=== PATIENT | female | born 1950 | race Caucasian/White ===

== ENCOUNTER 2018-02-10 09:26 | Observation (INO) | payer OTHER ==
[~2018-02-10] VITALS: Ht 165.1 cm; Wt 80.7 kg
[2018-02-10 10:25] VITALS: BP 120/72
[2018-02-10] MEDS ORDERED: ONDANSETRON PF 4 MG/2 ML VIAL. IV PRN (10:30)
[2018-02-10] MEDS ORDERED: IOHEXOL 240 MG/ML 50ML VIAL. ONE (10:32)
[2018-02-10 10:34] LABS: BASO % 1 % (0-3); EOS % 1 % (0-3); HEMATOCRIT 39.9 % (36.0-47.0); HEMOGLOBIN 13.4 g/dL (12.0-15.5); LYMPH % 18 % (24-48); MEAN CORPUSCULAR HEMOGLOBIN 31 pg (25-35); MEAN CORPUSCULAR HGB CONC 34 g/dL (31-37); MEAN CORPUSCULAR VOLUME 92 fL (79-100); MONO # 0.6 x10^3/uL (0.0-1.1); MONO % 11 % (0-9); NEUT % 71 % (31-73); PLATELET COUNT 212 x10^3/uL (140-400); RED BLOOD COUNT 4.32 x10^6/uL (3.50-5.40); RED CELL DISTRIBUTION WIDTH 13.7 % (11.5-14.5); WHITE BLOOD COUNT 5.6 x10^3/uL (4.0-11.0)
[2018-02-10 10:50] LABS: BACTERIA,URINE FEW /HPF (0-FEW); BILIRUBIN,URINE NEG (NEG); CLARITY,URINE HAZY; COLOR,URINE YELLOW; GLUCOSE,URINE NEG (NEG); NITRITE,URINE NEG (NEG); SQUAMOUS EPITHELIAL CELL,UR OCC /LPF; UROBILINOGEN,URINE 0.2 mg/dL (0.2 mg/dL); WBC,URINE 0 /HPF (0-4)
[2018-02-10] MEDS ORDERED: LEVO100T PO (10:59)
[2018-02-10] MEDS ORDERED: OMEG1CAP50 PO (10:59)
[2018-02-10] MEDS ORDERED: CHOL500016 PO (10:59)
[2018-02-10] MEDS ORDERED: PITA2TAB2 PO (10:59)
[2018-02-10] MEDS ORDERED: RANI150C PO (10:59)
[2018-02-10] MEDS ORDERED: CALC600T4 PO (10:59)
[2018-02-10] MEDS ORDERED: ASPI-630 PO (10:59)
[2018-02-10 11:48] LABS: ALBUMIN 3.4 g/dL (3.4-5.0); ALBUMIN/GLOBULIN RATIO 0.9 (1.0-1.7); CALCIUM 9.4 mg/dL (8.5-10.1); CREATININE 0.9 mg/dL (0.6-1.0); GFR 62.8; POTASSIUM 4.1 mmol/L (3.5-5.1); TOTAL BILIRUBIN 0.6 mg/dL (0.2-1.0); TOTAL PROTEIN 7.3 g/dL (6.4-8.2)
[2018-02-10] MEDS ORDERED: CALCIUM CARBONATE 500 MG TABLET PO SCH (12:00)
[2018-02-10] MEDS: IV NORMAL SALINE 1,000ML 1,000 ML IV SCH ×2 (12:11→20:14)
--- NOTE | 2018-02-10 12:35 | RAD ---
CT HEAD WITHOUT CONTRAST02/10/2018 12:13 PM Indication: Syncopal episode. Comparison: None Procedure: Multidetector CT imaging of the head was performed without the administration of contrast. Findings: There is no evidence of acute intracranial hemorrhage. There is no evidence of acute territorial infarction. Please note that CT is limited for evaluation of acute ischemia. No mass effect or midline shift is identified . The ventricles and basilar cisterns have an appropriate appearance. No abnormal extra-axial fluid collections are seen. Left frontal scalp hematoma noted. No acute osseous changes are identified. Impression: 1.No evidence of acute intracranial abnormality 2. Left frontal subcutaneous scalp hematoma PQRS Compliance Statement: One or more of the following individualized dose reduction techniques were utilized for this examination: 1. Automated exposure control 2. Adjustment of the mA and/or kV according to patient size 3. Use of iterative reconstruction technique
[2018-02-10] MEDS: OMEGA-3 FATTY ACIDS/FISH OIL 1,000 MG CAPSULE. PO SCH ×2 (13:00→17:00)
[2018-02-10 15:27] VITALS: BP 124/78
--- NOTE | 2018-02-10 15:59 | RAD ---
PQRS Compliance Statement: One or more of the following individualized dose reduction techniques were utilized for this examination: 1. Automated exposure control 2. Adjustment of the mA and/or kV according to patient size 3. Use of iterative reconstruction technique CT ABD PEL W/ORAL CONTRST ONLY Clinical Indication: llq pain and diarrhea since yesterday, Comparison: None. Technique: Helical CT imaging of the abdomen and pelvis is performed without IV contrast due to lack of IV access. Oral contrast is administered Findings: Evaluation of solid organs is limited without IV contrast, decreasing sensitivity for detection of pathology. Minimal dependent atelectasis in the lower lobes. Cardiac size normal. There is a 1.3 cm indeterminate hypodensity in subcapsular segment 8 of the liver. Cholelithiasis. Spleen, pancreas, adrenal glands, and abdominal aorta caliber are normal. There are a couple of nonobstructing left renal calculi. Largest measures 5 mm. There is no perinephric stranding or hydronephrosis. No ureteral calculus. Stomach unremarkable. No dilated small bowel. The appendix is normal. There is prominent intramural fat of the terminal ileum and proximal ascending colon that may be sequela of prior inflammation. No colon wall thickening is seen. No abdominal adenopathy or free fluid. The urinary bladder is normal. Uterus and ovaries unremarkable. No pelvic free fluid. No compression fracture in the thoracolumbar spine. L2 vertebral body hemangioma. IMPRESSION: 1. No acute abdominal or pelvic abnormality. 2. Cholelithiasis. 3. Nonobstructing left renal calculi. 4. Small hypodensity in the anterior right hepatic lobe, incompletely characterized. Suggest nonemergent workup with multiphase CT abdomen with contrast. Electronically signed by: Oswaldo Chambers MD (02/10/2018 3:56 PM) [id number]
--- NOTE | 2018-02-10 16:47 | EKG ---
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
[2018-02-10 19:15] VITALS: BP 144/83
[2018-02-10] MEDS ORDERED: ACETAMINOPHEN 325 MG TABLET PO PRN (19:45)
[2018-02-10] MEDS ORDERED: ASPIRIN 81 MG TAB.CHEW PO SCH (21:00)
[2018-02-10] MEDS ORDERED: FAMOTIDINE 20 MG TABLET PO SCH (21:00)
[2018-02-10] MEDS ORDERED: CHOLECALCIFEROL (VITAMIN D3) 1,000 UNIT TABLET PO SCH (21:00)
[2018-02-10] MEDS ORDERED: ATORVASTATIN CALCIUM 10 MG TABLET. PO SCH (21:00)
[2018-02-10 23:11] VITALS: BP 145/83
[2018-02-11] MEDS: IV NORMAL SALINE 1,000ML 1,000 ML IV SCH (06:00)
[2018-02-11 06:08] VITALS: BP 129/71
[2018-02-11 06:40] LABS: CALCIUM 8.3 mg/dL (8.5-10.1); CREATININE 0.8 mg/dL (0.6-1.0); POTASSIUM 3.9 mmol/L (3.5-5.1)
[2018-02-11 06:41] LABS: BASO % 1 % (0-3); EOS # 0.1 x10^3/uL (0.0-0.7); EOS % 2 % (0-3); HEMATOCRIT 34.4 % (36.0-47.0); HEMOGLOBIN 11.7 g/dL (12.0-15.5); LYMPH # 1.7 x10^3/uL (1.0-4.8); LYMPH % 39 % (24-48); MEAN CORPUSCULAR HEMOGLOBIN 31 pg (25-35); MEAN CORPUSCULAR HGB CONC 34 g/dL (31-37); MEAN CORPUSCULAR VOLUME 92 fL (79-100); MONO # 0.6 x10^3/uL (0.0-1.1); MONO % 13 % (0-9); NEUT % 46 % (31-73); PLATELET COUNT 184 x10^3/uL (140-400); RED BLOOD COUNT 3.75 x10^6/uL (3.50-5.40); RED CELL DISTRIBUTION WIDTH 13.6 % (11.5-14.5); WHITE BLOOD COUNT 4.4 x10^3/uL (4.0-11.0)
[2018-02-11] MEDS ORDERED: LEVOTHYROXINE 100 MCG TABLET PO SCH (07:30)
[2018-02-11] MEDS ORDERED: OMEGA-3 FATTY ACIDS/FISH OIL 1,000 MG CAPSULE. PO SCH ×2 (08:00→09:00)
[2018-02-11] MEDS ORDERED: NON FORMULARY ITEM (Pitavastatin Calcium (Livalo) 2 MG) PO SCH (09:00)
[2018-02-11] MEDS ORDERED: NON FORMULARY ITEM (Cholecalciferol (Vitamin D3) (Vitamin D3) 1 TAB) PO SCH (09:00)
[2018-02-11] MEDS ORDERED: CALCIUM CARBONATE 1200 MG PO SCH (09:00)
[2018-02-11] MEDS ORDERED: ASPIRIN 81 MG TAB.CHEW PO SCH (09:00)
[2018-02-11] MEDS ORDERED: NON FORMULARY ITEM (Ranitidine Hcl 150 MG) PO SCH (09:00)
== END 2018-02-11 09:38 | disposition home or self-care (01) ==
LOC: INTOOBSV 09:34 → 1 SOUTH 09:34
PROVIDERS: ADMIT Family Medicine; ATTEND Family Medicine
DX: S09.8XXA Other specified injuries of head, initial encounter (principal); R55 Syncope and collapse; R19.7 Diarrhea, unspecified; R10.32 Left lower quadrant pain; E86.0 Dehydration; R53.1 Weakness; W18.39XA Other fall on same level, initial encounter; Y93.89 Activity, other specified; Y92.091 Bathroom in other non-institutional residence as the place of occurrence of the external cause; Y99.8 Other external cause status; Z87.891 Personal history of nicotine dependence
CPT/HCPCS: 36415; 70450; 74176; 80048; 80053; 81001; 82150; 83690; 84484; 85025; 87045; 87086; 87324; 93005; 96360; 96361; G0378; G0379; J7030

== ENCOUNTER → 2018-10-12 | Outpatient (CLI) | payer OTHER, MEDICAID ==
[~2018-10-12] MED LIST: ASPI-630 PO; CALC600T4 PO; CHOL500016 PO; LEVO100T PO; OMEG1CAP50 PO; PITA2TAB2 PO; RANI150C PO
--- NOTE | 2018-10-12 14:45 | RAD ---
DATE: October 12, 2018 EXAM: MAMMO JUNA MIGUEL SCREENING BILATERAL HISTORY: Screening study. COMPARISON: September 11, 2015 This study was interpreted with the benefit of Computerized Aided Detection (CAD). 2-D digital mammographic views of both breasts were performed in the CC and MLO projections. 3-D digital tomosynthesis images of both breasts were performed in the CC and MLO projections and reviewed on a computer workstation. FINDINGS: Breast Density: SCATTERED The breast parenchyma shows scattered fibroglandular densities. Breast parenchyma level B.. There is a new nodule seen in the central aspect of the left breast in the MLO projection 6 cm straight back from the nipple measuring 5 mm in size. It is seen on juan miguel image 47 in the MLO projection. This is not seen in the CC projection. Recommend focal 2-D compression view of this area in the MLO projection followed by 3-D 90 degrees lateral medial view of the left breast for further evaluation. If this finding persists, then left breast sonography may be needed. The right breast is stable. IMPRESSION: New nodule of the left breast. Additional imaging is needed. BI-RADS CATEGORY: 0 INCOMPLETE: NEEDS ADDITIONAL IMAGING EVALUATION AND/OR PRIOR MAMMOGRAMS FOR COMPARISON. RECOMMENDED FOLLOW-UP: ADD ADDITIONAL IMAGING PQRS compliance statement: Patient information was entered into a reminder system with a target due date now for the next mammogram. Mammography is a sensitive method for finding small breast cancers, but it does not detect them all and is not a substitute for careful clinical examination. A negative mammogram does not negate a clinically suspicious finding and should not result in delay in biopsying a clinically suspicious abnormality. "Our facility is accredited by the [employer] Mammography [employer]." The patient's breast density may affect the ability of mammography to detect breast cancer. There are 4 categories of breast density, A, B, C and D. Breast density A means that most of the breast tissue is replaced with adipose tissue and therefore is not dense. Breast density B means that the breast tissue is mildly dense and scattered. Breast density C means that the breast tissue is heterogeneously dense. Breast density D means that the breast tissue is very dense. Breast densities especially C and D may decrease the sensitivity of mammography to detect breast cancer. Therefore, the patient may benefit from 3-D breast mammography (3D breast tomography) as a part of their screening mammogram. Insurance may or may not pay for this additional imaging. The patient's breast density based on today's mammogram is category B.
== END | disposition home or self-care (01) ==
LOC: MAMMO 10:09
PROVIDERS: ATTEND Nurse Practitioner Adult Health
DX: Z12.31 Encounter for screening mammogram for malignant neoplasm of breast (principal)
CPT/HCPCS: 77063; 77067

== ENCOUNTER → 2018-11-04 | Outpatient (CLI) | payer OTHER, MEDICAID ==
--- NOTE | 2018-11-04 15:03 | RAD ---
DATE: 11/04/2018 3:00 PM EXAM: DIGITAL DIAGNOSTIC LT, BREAST LEFT HISTORY: further evaluation of a finding noted on her most recent screening mammographic examination. On that examination a mass was reported within the left breast COMPARISON: Full field 3-D tomographic mammography of the left breast was performed in the ML view as well as 2-D spot compression MLO views. This study was interpreted with the benefit of Computerized Aided Detection (CAD). MAMMOGRAM FINDINGS: The nodular mass seen in the left breast on the prior mammogram is not well delineated on the spot compression views although is again seen on the tomographic ML view. Therefore this area was further assessed by ultrasound. ULTRASOUND TECHNIQUE: Targeted high resolution sonography of the region of clinical concern was performed. FINDINGS: Sonographic evaluation of the area of focal demonstrates unremarkable fibroglandular tissue without evidence for suspicious cystic or solid mass. In the far lateral left breast a 0.3 x 0.5 cm hypoechoic nodule is seen morphologically consistent with a normal lymph node. IMPRESSION: The nodular density was seen only on the tomographic images, stable. BI-RADS CATEGORY: 3 PROBABLY BENIGN FINDING(S)-SHORT INTERVAL FOLLOW-UP SUGGESTED RECOMMENDED FOLLOW-UP: 6M 6 MONTH FOLLOW-UP short interval follow-up tomographic imaging of the left breast is recommended. PQRS compliance statement: Patient information was entered into a reminder system with a target due date 04/04/2019 for the next mammogram. Mammography is a sensitive method for finding small breast cancers, but it does not detect them all and is not a substitute for careful clinical examination. A negative mammogram does not negate a clinically suspicious finding and should not result in delay in biopsying a clinically suspicious abnormality. "Our facility is accredited by the [employer] Mammography [employer]."
== END | disposition home or self-care (01) ==
LOC: MAMMO 12:39
PROVIDERS: ATTEND Physician Assistant
DX: R92.8 Other abnormal and inconclusive findings on diagnostic imaging of breast (principal)
CPT/HCPCS: 76641; 77065

== ENCOUNTER 2019-08-24 08:25 | Emergency (ER) | payer OTHER, MEDICAID ==
[~2019-08-24] VITALS: Ht 165.1 cm; Wt 78.9 kg
[2019-08-24] MEDS ORDERED: IV NORMAL SALINE 1,000ML 1,000 ML IV SCH (08:45)
--- NOTE | 2019-08-24 08:59 | PHYS DOC ---
Adult General Chief Complaint Chief Complaint: vomiting and diarrhea [facility] HPI Patient is a 68-year-old female who presents with report of vomiting and diarrhea for the last several days. Patient states that her last episode of vomiting was yesterday when she tried to eat some fruit. She states that she co ntinues to have diarrhea. She indicates that she has not been able to keep anything down to include water. She does admit some mild pain in her left lower abdomen that she describes as an ache. She also indicates that she has some pain in her left lower back. She is not aware of any fever. She states that nothing is improving her symptoms.[] Review of Systems Review of Systems Constitutional: Denies fever or chills [] Respiratory: Denies cough or shortness of breath [] Cardiovascular: No additional information not addressed in HPI [] GI: Complains of left lower abdominal pain with nausea, vomiting and diarrhea [] Musculoskeletal: Complains of left lower back pain [] Integument: Denies rash or skin lesions [] All other systems were reviewed and found to be within normal limits, except as documented in this note. Current Medications Current Medications Current Medications Medications (Trade) Dose Ordered Sig/Vlad Start Time Stop Time Status Last Admin Dose Admin Atropine Sulfate (ATROPINE 0.5mg SYRINGE) 0.4 mg 1X ONCE 08/24/19 08:45 08/24/19 08:46 UNV Ondansetron HCl (Zofran) 4 mg 1X ONCE 08/24/19 08:45 08/24/19 08:46 UNV Sodium Chloride 1,000 ml @ 1,000 mls/hr Q1H 08/24/19 08:45 08/24/19 09:44 UNV Allergies Allergies Allergies Coded Allergies Type Severity Reaction Last Updated Verified morphine Allergy Mild 02/10/18 Yes Physical Exam Physical Exam Constitutional: Well developed, well nourished, no acute distress, non-toxic appearance. [] HENT: Normocephalic, atraumatic, bilateral external ears normal, oropharynx moist, no oral exudates, nose normal. [] Eyes: PERRLA, EOMI, conjunctiva normal, no discharge. [] Neck: Normal range of motion, no tenderness, supple. [] Cardiovascular: Regular rate and rhythm[] Lungs & Thorax: Bilateral breath sounds clear to auscultation [] Abdomen: Bowel sounds normal, soft, with left lower abdominal tenderness. [] Skin: Warm, dry, no erythema, no rash. [] Extremities: No tenderness, no cyanosis, no clubbing, ROM intact, no edema. [] Neurologic: Alert and oriented X 3, no focal deficits noted. [] EKG EKG [] Radiology/Procedures Radiology/Procedures [] Impressions: PROCEDURE: CT ABDOMEN PELVIS WO CONTRAST CT ABDOMEN PELVIS WO CONTRAST Indication: Abdominal pain. Exposure: One or more of the following individualized dose reduction techniques were utilized for this examination: 1. Automated exposure control 2. Adjustment of the mA and/or kV according to patient size 3. Use of iterative reconstruction technique. Comparison: 02/10/2018. Technique: No intravenous contrast given. No oral contrast per request. Findings: Evaluation of solid viscera, bowel and vasculature is compromised by the noncontrast technique. Minimal atelectasis or fibrosis in lung bases. Small hypodense lesion in the anterior right lobe of liver is again seen, subcapsular in location, unchanged in size and appearance. Measures about 13 mm. Spleen unremarkable with small accessory splenules. Pancreas unremarkable. No evidence of adrenal mass. [id number] left hydronephrosis and proximal ureteric dilatation. This extends to the level of a 7 mm obstructive calculus in the proximal left ureter at about the L3-L4 level. Left kidney is mildly swollen with perinephric stranding and fascial thickening. Previously seen calculus in lower pole left kidney is no longer present in that location. No evidence of right hydronephrosis or calculus. However, there is mild stranding in the right perinephric fat which has increased since previous exam. Cholelithiasis redemonstrated. Aorta mildly calcified, no evidence of aneurysm. No significant lymph node enlargement. Small hiatal hernia. No significant small bowel distention. Prominent intramural fat within the terminal ileum and proximal colon is again identified. No evidence of acute colonic wall thickening or pericolonic fatty stranding. There is also prominent intramural fat within the appendix without evidence of acute wall thickening or other signs of acute appendicitis. No significant ascites or evidence of pneumoperitoneum. Mild urinary bladder wall thickening may be related to lack of distention but is unchanged since prior study. No evidence of pelvic mass. Vertebral body height and alignment intact. Lytic lesion of L2 vertebral body is stable, compatible with benign hemangioma. IMPRESSION: 1. Mild to moderately obstructive 7 mm calculus in the proximal left ureter. Left renal swelling and perinephric stranding could be obstructive in nature, or indicative of pyelonephritis. 2. Note there is also mild right perinephric fatty stranding, new since prior exam, could also indicate right renal inflammatory change or pyelonephritis. 3. Cholelithiasis. 4. Stable small hypodense hepatic lesion. Electronically signed by: Kelvin Brandon MD (08/24/2019 11:25 AM) [facility] DICTATED AND SIGNED BY: KELVIN BRANDON MD DATE: 08/24/19 1125 CC: EDE JONES Jr. DO; DEVAUGHN LOPEZ ~ Course & Med Decision Making Course & Med Decision Making Pertinent Labs and Imaging studies reviewed. (See chart for details) Patient moved to room upon arrival was evaluated by your medical staff after which an IV was established and blood work was drawn. A CT of the abdomen and pelvis was also obtained. Patient noted to have findings of 7 mm calculus and also has urinary tract infection. Findings on CT were suggestive of pyelonephritis. Given size of stone, I do feel the patient warrants evaluation with urology and [facility] has been contacted. Patient has been accepted by Dr. James Cruz. Dragon Disclaimer Dragon Disclaimer This electronic medical record was generated, in whole or in part, using a voice recognition dictation system. Departure Departure: Impression: Primary Impression: Pyelonephritis Additional Impressions: Ureterolithiasis Vomiting and diarrhea Disposition: 02 XFER [facility]M HOSP Condition: IMPROVED Referrals: DEVAUGHN LOPEZ (PCP) Problem Qualifiers EDE JONES Jr., DO Aug 24, 2019 08:59
[2019-08-24 09:10] LABS: BASO # 0.1 x10^3/uL (0.0-0.2); BASO % 1 % (0-3); EOS % 0 % (0-3); HEMATOCRIT 39.7 % (36.0-47.0); HEMOGLOBIN 13.3 g/dL (12.0-15.5); LYMPH # 0.9 x10^3/uL (1.0-4.8); LYMPH % 8 % (24-48); MEAN CORPUSCULAR HEMOGLOBIN 31 pg (25-35); MEAN CORPUSCULAR HGB CONC 34 g/dL (31-37); MEAN CORPUSCULAR VOLUME 93 fL (79-100); MONO # 1.1 x10^3/uL (0.0-1.1); MONO % 10 % (0-9); NEUT # 9.9 x10^3uL (1.8-7.7); NEUT % 82 % (31-73); PLATELET COUNT 294 x10^3/uL (140-400); RED BLOOD COUNT 4.29 x10^6/uL (3.50-5.40); RED CELL DISTRIBUTION WIDTH 13.6 % (11.5-14.5)
[2019-08-24] MEDS ORDERED: ONDANSETRON PF 4 MG/2 ML VIAL. IVP ONE (09:15)
[2019-08-24] MEDS ORDERED: ATROPINE SULFATE 1 MG VIAL IM ONE (09:15)
[2019-08-24 09:21] LABS: ALBUMIN 3.1 g/dL (3.4-5.0); ALBUMIN/GLOBULIN RATIO 0.6 (1.0-1.7); CALCIUM 9.7 mg/dL (8.5-10.1); CREATININE 1.1 mg/dL (0.6-1.0); GFR 49.7; POTASSIUM 3.7 mmol/L (3.5-5.1); TOTAL BILIRUBIN 1.4 mg/dL (0.2-1.0); TOTAL PROTEIN 8.5 g/dL (6.4-8.2)
[2019-08-24 10:07] LABS: BACTERIA,URINE MANY /HPF (0-FEW); BILIRUBIN,URINE NEG (NEG); CLARITY,URINE TURBID; COLOR,URINE AMBER; GLUCOSE,URINE NEG (NEG); NITRITE,URINE POS (NEG); SQUAMOUS EPITHELIAL CELL,UR FEW /LPF; UROBILINOGEN,URINE 0.2 mg/dL (0.2 mg/dL); WBC,URINE >40 /HPF (0-4)
[2019-08-24 10:08] LABS: GRANULAR CASTS,URINE FEW /HPF
--- NOTE | 2019-08-24 11:27 | RAD ---
CT ABDOMEN PELVIS WO CONTRAST Indication: Abdominal pain. Exposure: One or more of the following individualized dose reduction techniques were utilized for this examination: 1. Automated exposure control 2. Adjustment of the mA and/or kV according to patient size 3. Use of iterative reconstruction technique. Comparison: 02/10/2018. Technique: No intravenous contrast given. No oral contrast per request. Findings: Evaluation of solid viscera, bowel and vasculature is compromised by the noncontrast technique. Minimal atelectasis or fibrosis in lung bases. Small hypodense lesion in the anterior right lobe of liver is again seen, subcapsular in location, unchanged in size and appearance. Measures about 13 mm. Spleen unremarkable with small accessory splenules. Pancreas unremarkable. No evidence of adrenal mass. [id number] left hydronephrosis and proximal ureteric dilatation. This extends to the level of a 7 mm obstructive calculus in the proximal left ureter at about the L3-L4 level. Left kidney is mildly swollen with perinephric stranding and fascial thickening. Previously seen calculus in lower pole left kidney is no longer present in that location. No evidence of right hydronephrosis or calculus. However, there is mild stranding in the right perinephric fat which has increased since previous exam. Cholelithiasis redemonstrated. Aorta mildly calcified, no evidence of aneurysm. No significant lymph node enlargement. Small hiatal hernia. No significant small bowel distention. Prominent intramural fat within the terminal ileum and proximal colon is again identified. No evidence of acute colonic wall thickening or pericolonic fatty stranding. There is also prominent intramural fat within the appendix without evidence of acute wall thickening or other signs of acute appendicitis. No significant ascites or evidence of pneumoperitoneum. Mild urinary bladder wall thickening may be related to lack of distention but is unchanged since prior study. No evidence of pelvic mass. Vertebral body height and alignment intact. Lytic lesion of L2 vertebral body is stable, compatible with benign hemangioma. IMPRESSION: 1. Mild to moderately obstructive 7 mm calculus in the proximal left ureter. Left renal swelling and perinephric stranding could be obstructive in nature, or indicative of pyelonephritis. 2. Note there is also mild right perinephric fatty stranding, new since prior exam, could also indicate right renal inflammatory change or pyelonephritis. 3. Cholelithiasis. 4. Stable small hypodense hepatic lesion. Electronically signed by: Kelvin Brandon MD (08/24/2019 11:25 AM) [id number]
[2019-08-24 11:54] VITALS: BP 115/69
[2019-08-24] MEDS ORDERED: IV NORMAL SALINE 50ML 50 ML ONE (12:07)
[2019-08-24] MEDS ORDERED: cefTRIAXone SODIUM 1 GM VIAL ONE (12:07)
== END 2019-08-24 13:57 | disposition short-term general hospital (02) ==
LOC: ER 08:25
DX: N20.1 Calculus of ureter (principal); R19.7 Diarrhea, unspecified; Z88.5 Allergy status to narcotic agent
CPT/HCPCS: 36415; 74176; 80053; 81001; 83690; 85025; 87086; 87493; 96361; 96365; 96372; 96375; 99285; J0461; J0696; J2405; J7030